=== PATIENT | female | born 1995 | race Caucasian/White ===

== ENCOUNTER 2022-04-01 17:17 | Emergency (ER) | payer OTHER, SELFPAY ==
[2022-04-01 17:23] VITALS: BP 125/75; PULSE 97; RESP 18; TEMP 37.2; O2SAT 95; BMI 45.7
[2022-04-01 17:30] VITALS: BP 120/79; PULSE 97; RESP 18; O2SAT 94
--- NOTE | 2022-04-01 17:38 | CRLHL7_ITS ---
For Patients: As a result of the Century Cures Act, medical imaging exams and procedure reports are released immediately into your electronic medical record. You may view this report before your referring provider. If you have questions, please contact your health care provider. HISTORY: Status post fall with right chest pain and difficulty breathing. COMPARISON: None available FINDINGS: A portable erect AP view of the chest was obtained at 1751 hours. The lungs are clear despite shallow inspiration. No focal or diffuse infiltrates are present. There is moderate elevation of the right hemidiaphragm consistent with diaphragmatic eventration. There is no sign of pneumothorax or abnormality of the ribs to correlate with the history of chest pain. The heart is top normal in size with increase in apparent heart size from shallow inspiration. The mediastinum is normal in appearance. The osseous structures are normal in appearance for the patient`s age. IMPRESSION: No active disease seen in the chest. No sign of traumatic injury to the chest to correlate with the history of pain. Dictated by Hugh Rowland MD @ 04/01/2022 6:42:42 PM (Electronically Signed)
[2022-04-01 17:40] VITALS: BP 127/70; PULSE 95; RESP 18; O2SAT 95
--- NOTE | 2022-04-01 17:44 | CRLHL7_ITS ---
For Patients: As a result of the Century Cures Act, medical imaging exams and procedure reports are released immediately into your electronic medical record. You may view this report before your referring provider. If you have questions, please contact your health care provider. INDICATION: Status post fall. Right chest pain. Difficulty breathing. COMPARISON: Chest radiograph from today. TECHNIQUE: : CT examination of the chest was performed with the uneventful intravenous administration of 75 cc of Isovue 370 while 3 mm thick axial sections were obtained from above the apices of the lungs to the lung bases. Please note that all CT scans at this facility use dose modulation, iterative reconstruction, and/or weight-based dosing when appropriate to reduce radiation dose to as low as reasonably achievable. FINDINGS: : The lungs are clear with no sign of significant infiltrate or mass. There is no sign of pneumothorax, pulmonary contusion, pleural effusion, or pleural hematoma. There is satisfactory in hands since of the pulmonary arteries with no sign of pulmonary embolism. There is no sign of mediastinal or hilar mass or adenopathy. The heart is mildly enlarged with four-chamber dilatation. There is no sign of coronary calcification. There is age appropriate appearance of the thoracic aorta and ascending great vessels. There is no sign of supraclavicular or axillary mass or adenopathy. The visualized superior liver, spleen, pancreas, kidneys, and adrenals are normal in appearance. The osseous structures are normal in appearance for the patient`s age. IMPRESSION: No sign of traumatic injury to the chest. Mild cardiomegaly. Otherwise normal CT of the chest with contrast. Please note that all CT scans at this facility use dose modulation, iterative reconstruction, and/or weight-based dosing when appropriate to reduce radiation dose to as low as reasonably achievable. Dictated by Hugh Rowland MD @ 04/01/2022 6:50:57 PM (Electronically Signed)
--- NOTE | 2022-04-01 17:44 | CRLHL7_ITS ---
For Patients: As a result of the Cures Act, medical imaging exams and procedure reports are released immediately into your electronic medical record. You may view this report before your referring provider. If you have questions, please contact your health care provider. INDICATION: Fall. Trauma. TECHNIQUE: CT of the cervical spine without contrast. Coronal and sagittal reformats are included. COMPARISON: None. FINDINGS: No acute fracture or traumatic malalignment of the cervical spine. Craniocervical junction alignment is maintained. No bony spinal canal or neural foraminal stenosis. Imaged intracranial structures, cervical and paraspinous soft tissues are normal in appearance. The visualized pulmonary apices are clear. IMPRESSION: 1. No acute fracture or traumatic malalignment of the cervical spine. Please note that all CT scans at this facility use dose modulation, iterative reconstruction, and/or weight-based dosing when appropriate to reduce radiation dose to as low as reasonably achievable. Dictated by Que Kimble MD @ 04/01/2022 6:31:53 PM (Electronically Signed)
--- NOTE | 2022-04-01 17:47 | CRLHL7_ITS ---
For Patients: As a result of the Century Cures Act, medical imaging exams and procedure reports are released immediately into your electronic medical record. You may view this report before your referring provider. If you have questions, please contact your health care provider. INDICATION: Fall. Trauma. TECHNIQUE: CT of the head without contrast. Coronal and sagittal reformats are included. COMPARISON: Head CT from 12/29/2018. FINDINGS: No acute intracranial hemorrhage. No mass effect or midline shift. No hydrocephalus or extra-axial collections. White matter is within normal limits for age. No acute osseous abnormalities. Mastoid air cells and paranasal sinuses are clear. Normal soft tissues. IMPRESSION: IMPRESSION: 1. No acute intracranial abnormalities. Please note that all CT scans at this facility use dose modulation, iterative reconstruction, and/or weight-based dosing when appropriate to reduce radiation dose to as low as reasonably achievable. Dictated by Que Kimble MD @ 04/01/2022 6:29:32 PM (Electronically Signed)
[2022-04-01] MEDS: KETOROLAC 15 MG/ML inj IVP (17:58)
--- NOTE | 2022-04-01 17:58 | ED_ITS ---
HPI - General Adult General Date Seen: 04/01/22 Chief complaint: Fall/Minor Trauma Stated complaint: fall from horse trouble breathing Time Seen by Provider: 04/01/22 17:29 Source: patient History of Present Illness HPI narrative: Patient is a 26-year-old comes in by car with a friend for evaluation after being thrown from a horse. She says that she was wearing helmet, the horse bucked and she went backward. Her friend says that from what she heard, the patient hit the saddle 1st and then bounced back onto the ground. She landed on her right side. She says that initially she had a hard time breathing, she sat up in just kind of had to sit there against the boards of the paddock for a little while to trying catch her breath. She is able to breathe better now but still complains of severe pain in her right upper chest, right lower posterior ribcage and right clavicle area. She says she did hit her head but did not lose consciousness. She denies headache. She denies neck pain. She is holding her right arm close to her body because it feels better in her chest that way. She denies any pain in the right arm itself. She has some pain in her right posterior hip area. She has been ambulatory without difficulty. She denies any lower back pain or abdominal pain. Denies any significant medical history, no allergies. Medications include sertraline. Related Data Home Medications Medication Instructions Recorded Confirmed sertraline 50 mg tablet mg 04/01/22 Allergies Allergy/AdvReac Type Severity Reaction Status Date / Time No Known Drug Allergies Allergy Verified 04/01/22 18:02 Review of Systems Status of ROS: Reports: 10 or more systems reviewed and unremarkable except as noted in History and below [facility] Medical History (Updated 04/01/22 @ 19:58 by Madalyn Nagel MD) Asthma Surgical History (Updated 04/01/22 @ 18:37 by Dariana Esparza RN) History of appendectomy Social History Smoking Status: Former smoker Do you use any of these nicotine containing products: None Second hand tobacco smoke exposure: No How often do you have a drink containing alcohol: 2-4 times a month How many standard drinks containing alcohol do you have on a typical day: 1 or 2 How often do you have six or more drinks on one occasion: Never AUDIT-C Alcohol total score: 2 Non-prescribed substance use: denies use Exam Narrative: Exam Narrative: Primary survey: Airway: Patent. Breathing: She is breathing somewhat shallowly and rapidly secondary to pain. Otherwise, breathing is nonlabored. Breath sounds are equal bilaterally. Circulation: Pulses intact. No bleeding. Disability: GCS 15. Secondary survey: Vital signs as below. In general, an alert, nontoxic woman. Tearful, upset. Head: Normocephalic, atraumatic. No abrasions, hematoma, bruising. Eyes: Pupils are equal reactive. Extraocular movements are full. Conjunctivae are normal. ENT: Mucous membranes are moist. Throat is normal. Neck: Supple without lymphadenopathy. Nontender to palpation. Heart: Regular rate and rhythm. No murmur or rub. Lungs: Clear bilaterally. No increased work of breathing, crackles or wheezes. There may be a developing bruise by the clavicle on the right. She notes significant tenderness over the clavicle. Does not appear to be any significant tenderness over the chest wall. No bruising, crepitus or subQ air. She has significant breast tissue which somewhat limits the exam of her chest. Posterio r torso is mildly tenderness to palpation, no focal tenderness, no crepitus, no bruising. Abdomen: Soft and nontender. No organomegaly. Back: Nontender to palpation. Extremities: Well perfused. No edema. No calf tenderness. Pulses intact. Bilateral hips show full range of motion. Nontender. She has an abrasion just above the posterior iliac crest on the right. No bony tenderness. Neurologic: Patient is alert and oriented to person and place. Speech is fluent. Face is symmetric. Moves all extremities equally. Affect: Tearful. Somewhat anxious. Skin: Warm and dry. Well perfused. Const: Vital Signs, click to edit/add: Vital Signs - 24 hr 04/01/22 17:23 04/01/22 17:30 04/01/22 17:40 Temperature 98.9 F Pulse Rate [Pulse Oximeter] 97 97 95 Respiratory Rate 18 18 18 Blood Pressure [Le ft Upper Arm] 125/75 120/79 127/70 Pulse Oximetry 95 94 95 04/01/22 18:00 04/01/22 18:30 Temperature Pulse Rate [Pulse Oximeter] 95 95 Respiratory Rate 12 20 Blood Pressure [Le ft Upper Arm] 132/65 114/47 L Pulse Oximetry 99 Documenting provider has reviewed patient's vital signs: yes Course Course Hospital Course: Following initial evaluation, patient had a portable chest x-ray. By my review this is negative for obvious rib fracture, pneumothorax, clavicles appear normal. Final radiology report is negative. She had an IV placed, given Toradol, refused Zofran. A L of normal saline was given as well. I elected to do a CT of the head as well as cervical spine given that she had distracting injuries, or at least distracting significant pain. CT of the head by my review is negative, CT of the cervical spine was read by Radiology as showing no evidence of trauma to the cervical spine. The CT of the head likewise was read as negative by Radiology. CT of the chest by my review showed no evidence of pneumothorax or obvious rib fracture. Final radiology read is negative for any evidence of trauma to the chest. Visualized portions of the upper abdomen are normal as well. A urinalysis was obtained, this is negative for blood. CBC showed a mildly elevated white blood cell count of 13.2, likely demargination. Hemoglobin is 13.6. Metabolic panel is entirely within normal limits. Overall, patient complains of diffuse pain across the anterior and posterior right chest, along with difficulty breathing after a fall from horse. I do not find any evidence of significant trauma, and I think pain is related primarily to contusion. She denies any abdominal trauma, pain, and has no abdominal tenderness, therefore did not pursue abdominal imaging at this time. She does not want any pain medications that will make her ?loopy, and so we discussed pain control with ibuprofen and Tylenol, ice. I think it is reasonable to let her go home. Certainly if she has acute worsening, develops significant shortness of breath, vomiting, has severe uncontrolled pain, she can return to the emergency department. Otherwise, discussed that she will likely feel more sore tomorrow, should gradually improve thereafter. Vital Signs Vital signs: Initial Vital Signs Temperature 98.9 F 04/01/22 17:23 Temperature Source Temporal Artery Scan 04/01/22 17:23 Pulse Rate 97 04/01/22 17:23 Pulse Rhythm 04/01/22 17:23 Respiratory Rate 18 04/01/22 17:23 Blood Pressure 125/75 04/01/22 17:23 Blood Pressure Mean 91 04/01/22 17:23 Blood Pressure Position Sitting 04/01/22 17:23 Pulse Oximetry 95 04/01/22 17:23 Oxygen Delivery Method 04/01/22 17:23 Vital Signs Temperature 98.9 F 04/01/22 17:23 Pulse Rate 97 04/01/22 17:23 Respiratory Rate 18 04/01/22 17:23 Blood Pressure 125/75 04/01/22 17:23 Pulse Oximetry 95 04/01/22 17:23 Temperature 98.9 F 04/01/22 17:23 Pulse Rate 95 04/01/22 18:30 Respiratory Rate 20 04/01/22 18:30 Blood Pressure 114/47 L 04/01/22 18:30 Pulse Oximetry 99 04/01/22 18:30 Medical Decision Making Lab Data Labs: Lab Results 04/01/22 04/01/22 04/01/22 Range/Units 17:58 17:58 19:05 WBC 13.20 H (4.50-11.00) K/uL RBC 4.41 (4.00-5.20) m/uL Hgb 13.6 (12.0-16.0) gm/dL Hct 40.1 (33.0-51.0) % MCV 91 (80-100) fL MCH 31 (26-34) pg MCHC 34 (32-36) gm/dL RDW Coeff of [place]armaine 11.9 (11.5-15.5) % Plt Count 311 (140-440) K/uL Neut % (Auto) 70.7 (42.0-72.0) % Lymph % (Auto) 21.2 (20-44) % [place] % (Auto) 6.4 (0.0-11.0) % Eos % (Auto) 1.0 (0.0-7.0) % Baso % (Auto) 0.2 (0.0-3.0) % Neut # (Auto) 9.30 H (1.7-7.0) K/uL Lymph # (Auto) 2.80 (0.90-2.90) K/uL [place] # (Auto) 0.80 (0.00-0.90) K/UL Eos # (Auto) 0.10 (0.00-0.50) K/uL Baso # (Auto) 0.00 (0.00-0.30) K/uL Abs Immat Gran (auto) 0.06 (0.00-0.30) K/uL Sodium 138 (135-149) mmol/L Potassium 3.9 (3.6-5.1) mmol/L Chloride 106 (96-114) mmol/L Carbon Dioxide 25 (20-32) mmol/L BUN 19 (5-24) mg/dL Creatinine 0.8 (0.5-1.5) mg/dL Estimated Creat Clear 84.28 Estimated GFR 104 ml/min Glucose 102 (60-115) mg/dL Calcium 9.6 (8.4-10.6) mg/dL Urine Color Yellow (Yellow) Urine Appearance Clear (Clear) Urine pH 5.5 (5.0-8.5) Ur Specific [place] 1.025 (1.000-1.030) Urine Protein Negative (Negative) Urine Glucose (UA) Negative (Negative) Urine Ketones Trace A (Negative) Urine Blood Negative (Negative) Urine Nitrite Negative (Negative) Urine Bilirubin Negative (Negative) Urine Urobilinogen 0.2 (0.2-1.0) Ur Leukocyte Esterase Negative (Negative) Urine RBC 0-2 (0-2) Urine WBC 0-2 (0-5) Ur Squamous Epith Cells Moderate A (None-Few) Urine Bacteria Moderate A (None) Discharge Plan Discharge Clinical Impression: Contusion of right chest wall, Abrasion of hip, right Patient Disposition: Home, Self-Care Condition: Improved Instructions: Rib Contusion (ED) Additional Instructions: Ibuprofen or Tylenol, ice as needed. You will probably feel more sore tomorrow, but should gradually improve after that. If you have any severe or worsening pain, significant shortness of breath, or other significant symptom, return for re-evaluation. Prescriptions: No Action sertraline 50 mg tablet 0RF Stand Alone Forms: [employer] Info Instructions
[2022-04-01 18:00] VITALS: BP 132/65; PULSE 95; RESP 12
[2022-04-01 18:06] LABS: Basophils Percent Auto 0.2 % (0.0-3.0); Hematocrit 40.1 % (33.0-51.0); Hemoglobin* 13.6 gm/dL (12.0-16.0); Immature Granulocytes Abs Auto 0.06 K/uL (0.00-0.30); Lymphocytes Percent Auto 21.2 % (20-44); Mean Corpuscular HGB Conc 34 gm/dL (32-36); Mean Corpuscular Hemoglobin 31 pg (26-34); Mean Corpuscular Volume 91 fL (80-100); Monocytes Percent Auto 6.4 % (0.0-11.0); Neutrophils Percent Auto 70.7 % (42.0-72.0); Platelet Count* 311 K/uL (140-440); RDW Coefficient of Variation % 11.9 % (11.5-15.5); Red Blood Count 4.41 m/uL (4.00-5.20)
[2022-04-01 18:30] VITALS: BP 114/47; PULSE 95; RESP 20; O2SAT 99
[2022-04-01 18:32] LABS: Slide Review Reflex No
[2022-04-01] MEDS: 0.9 % SODIUM CHLORIDE 1000 ml 1,000 ML IV (18:33)
--- NOTE | 2022-04-01 18:33 | ED.NURSE ---
Pt states she is no longer nauseated and declines zofran at this time.
[2022-04-01 18:34] LABS: Chloride* 106 mmol/L (96-114); Potassium* 3.9 mmol/L (3.6-5.1); Sodium* 138 mmol/L (135-149)
[2022-04-01 18:37] LABS: Blood Urea Nitrogen* 19 mg/dL (5-24); Calcium* 9.6 mg/dL (8.4-10.6); Carbon Dioxide* 25 mmol/L (20-32); Creatinine* 0.8 mg/dL (0.5-1.5); Est. Creatinine Clearance* 84.28; Estimated Glomerular Filt Rate 104 ml/min; Glucose* 102 mg/dL (60-115)
[2022-04-01 19:14] LABS: Appearance Urine Clear (Clear); Bilirubin Urine Negative (Negative); Blood Urine Negative (Negative); Color Urine Yellow (Yellow); Glucose Urine Negative (Negative); Ketones Urine Trace (Negative); Leukocyte Esterase Urine Negative (Negative); Nitrite Urine Negative (Negative); Protein Urine Negative (Negative); Specific Gravity Urine 1.025 (1.000-1.030); Urobilinogen Urine 0.2 (0.2-1.0); pH Urine 5.5 (5.0-8.5)
[2022-04-01 19:22] LABS: Bacteria Urine Moderate; RBC Urine 0-2 (0-2); Squamous Epithelial Cell Urine Moderate (None-Few); WBC Urine 0-2 (0-5)
== END 2022-04-01 20:19 | disposition home or self-care (01) ==
PROVIDERS: Emergency Provider Emergency Medicine
DX: S20.211A Contusion of right front wall of thorax, initial encounter (principal); V80.010A Animal-rider injured by fall from or being thrown from horse in noncollision accident, initial encounter; S70.211A Abrasion, right hip, initial encounter
CPT/HCPCS: 36415; 70450; 71045; 71260; 72125; 80048; 81001; 85025; 87086; 96374; 96375; 99284; 99285; 99291; J1885; J7030; Q9967